=== PATIENT | female | born 1975 | race Two or more races ===

== ENCOUNTER 2018-06-19 13:09 | Emergency (ER) | payer MEDICAID, OTHER ==
[~2018-06-19] VITALS: Ht 165.1 cm; Wt 91.6 kg
[2018-06-19 14:10] LABS: Urine Bacteria FEW /hpf (None Seen); Urine Blood 2+ /uL (Negative); Urine Specific Gravity 1.014 (1.001-1.035); Urine WBC 3 /hpf (0 - 5)
[2018-06-19 14:27] LABS: Eosinophils # (auto) 0.1 uL; Eosinophils % (auto) 1.2 % (0.0-7.0); Mean Corpuscular Volume 81.6 fL (80.0-100.0); Monocytes # (auto) 0.6 uL
[2018-06-19 14:29] LABS: Basophils # (auto) 0 uL; Basophils % (auto) 0.4 % (0.0-2.0); Hematocrit 22.2 % (36.0-46.0); Hemoglobin 7.2 g/dL (12.2-16.2); Lymphocytes # (auto) 2.2 uL; Lymphocytes % (auto) 18.1 % (10.0-50.0); Mean Corpuscular Hemoglobin 26.6 pg (28.0-32.0); Mean Corpuscular Hgb Conc. 32.5 g/dL (32.0-36.0); Neutrophils # (auto) 9.1 uL; Neutrophils % (auto) 75.3 % (37.0-80.0); Nucleated Red Blood Cells % 0.2 %; Platelet Count (auto) 401 10^3/uL (140-450); Red Blood Cells 2.71 10^6/uL (4.0-5.20); Red Cell Distribution Width 15.2 % (11.8-14.3)
[2018-06-19 15:12] LABS: Albumin 3.4 g/dL (3.4-5.0); BUN/Creatinine Ratio 11.6; Bilirubin, Total 0.3 mg/dL (0.2-1.0); Calcium 8.3 mg/dL (8.5-10.1); Potassium 3.6 mmol/L (3.5-5.1); Total Protein 7.4 g/dL (6.4-8.2)
[2018-06-19] MEDS ORDERED: ACETAMINOPHEN 500 MG TAB PO ONE (15:15)
[2018-06-19 15:53] VITALS: BP 118/57
[2018-06-19] MEDS ORDERED: FERROUS SULFATE 325 MG TAB PO ONE (16:00)
== END 2018-06-19 17:32 | disposition home or self-care (01) ==
LOC: ER 13:09
DX: N93.9 Abnormal uterine and vaginal bleeding, unspecified (principal); D64.9 Anemia, unspecified
CPT/HCPCS: 36415; 76856; 80053; 81001; 84702; 85025; 99285; J7030

== ENCOUNTER 2020-07-11 07:23 | Emergency (ER) | payer MEDICAID ==
[~2020-07-11] VITALS: Ht 167.6 cm; Wt 81.6 kg
[2020-07-11 08:01] LABS: Basophils # (auto) 0.1 10 ^3/uL (0-0.2); Basophils % (auto) 0.5 % (0.0-2.0); Eosinophils # (auto) 0.2 10 ^3/uL (0-0.8); Eosinophils % (auto) 1.6 % (0.0-7.0); Hematocrit 27.8 % (36.0-46.0); Hemoglobin 8.7 g/dL (12.2-16.2); Lymphocytes # (auto) 1.8 10 ^3/uL (0.4-5.4); Lymphocytes % (auto) 14.5 % (10.0-50.0); Mean Corpuscular Hemoglobin 26.6 pg (28.0-32.0); Mean Corpuscular Hgb Conc. 31.3 g/dL (32.0-36.0); Monocytes # (auto) 0.6 10 ^3/uL (0-1.3); Monocytes % (auto) 5.3 % (0.0-12.0); Neutrophils # (auto) 9.6 10 ^3/uL (1.6-8.6); Neutrophils % (auto) 78.1 % (37.0-80.0); Nucleated Red Blood Cells % 0.1 %; Platelet Count (auto) 379 10^3/uL (140-450); Red Blood Cells 3.27 10^6/uL (4.0-5.20); White Blood Cell 12.2 10^3/uL (4.4-10.8)
[2020-07-11 08:03] LABS: Red Cell Distribution Width 20.9 % (11.8-14.3)
[2020-07-11 08:28] LABS: Albumin 3.3 g/dL (3.4-5.0); Calcium 8.4 mg/dL (8.5-10.1); Potassium 3.7 mmol/L (3.5-5.1)
[2020-07-11 08:31] LABS: BUN/Creatinine Ratio 18.1; Bilirubin, Total 0.2 mg/dL (0.2-1.0)
[2020-07-11] MEDS ORDERED: ONDANSETRON HCL 4 MG/2 ML VIAL IV ONE (09:45)
[2020-07-11] MEDS ORDERED: FERROUS SULFATE 325 MG TAB PO ONE (09:45)
[2020-07-11] MEDS ORDERED: MORPHINE SULFATE 4 MG/ML SYR/VIAL IV ONE (09:45)
[2020-07-11 12:02] LABS: Urine WBC None Seen /hpf (0 - 5)
[2020-07-11 12:33] LABS: Urine Bacteria NONE SEEN /hpf (None Seen); Urine Blood 3+ /uL (Negative)
[2020-07-11] MEDS ORDERED: HYDROcodone-ACET 5/325MG TAB PO ONE (13:45)
[2020-07-11 14:00] VITALS: BP 107/59
== END 2020-07-11 16:12 | disposition home or self-care (01) ==
LOC: ER 07:23 → EDBD 07:23 → ER 16:12
DX: N93.9 Abnormal uterine and vaginal bleeding, unspecified (principal); E86.0 Dehydration; D64.9 Anemia, unspecified; N83.201 Unspecified ovarian cyst, right side; N39.0 Urinary tract infection, site not specified; N20.0 Calculus of kidney; N92.0 Excessive and frequent menstruation with regular cycle
CPT/HCPCS: 36415; 74176; 76830; 76856; 80053; 81001; 85025; 96374; 96375; 99285; J2270; J2405

== ENCOUNTER 2023-01-28 00:19 | Emergency (ER) | payer MEDICAID ==
[~2023-01-28] VITALS: Ht 165.1 cm; Wt 95.0 kg
[2023-01-28] MEDS ORDERED: diphenhdrAMINE HCL 50 MG/1 ML VL IM ONE (00:45)
[2023-01-28] MEDS ORDERED: methylPREDNISolone SOD SUCC 125 MG/2 ML VL IM ONE (00:45)
[2023-01-28 03:33] LABS: Urine Bacteria NONE SEEN /hpf (None Seen); Urine Blood TRACE /uL (Negative); Urine Mucus FEW (None Seen); Urine Specific Gravity 1.029 (1.001-1.035); Urine WBC 2 /hpf (0 - 5)
[2023-01-28] MEDS ORDERED: PRED20TA2 PO (05:06)
[2023-01-28] MEDS ORDERED: DIPH-491 PO (05:06)
[2023-01-28 05:29] VITALS: BP 108/63
== END 2023-01-28 07:33 | disposition home or self-care (01) ==
LOC: ER 00:19
DX: T78.40XA Allergy, unspecified, initial encounter (principal); X58.XXXA Exposure to other specified factors, initial encounter
CPT/HCPCS: 81001; 96372; 99284; J1200; J2930

== ENCOUNTER 2024-02-10 18:04 | Emergency (ER) | payer MEDICAID, OTHER ==
[~2024-02-10] VITALS: Ht 167.6 cm; Wt 95.5 kg
[~2024-02-10 18:04] MED LIST: DIPH-491 PO; PRED20TA2 PO
[2024-02-10] MEDS ORDERED: AMOX875T4 PO (22:21)
[2024-02-10] MEDS ORDERED: IBUP-1456 PO (22:21)
[2024-02-10 23:18] VITALS: BP 109/67; PULSE 75; RESP 18; TEMP 97.2; O2SAT 95
[2024-02-10] MEDS: cefTRIAXone SOD 1,000 MG VL IM ONE (23:30)
[2024-02-10] MEDS: ONDANSETRON ODT 4 MG TAB PO ONE (23:31)
[2024-02-10] MEDS: HYDROcodone-ACET 5/325MG TAB PO ONE (23:31)
[2024-02-10] MEDS: TETANUS-DIPTH-ACEL PERTUSSIS 0.5ML SYR Tdap IM ONE (23:42)
== END 2024-02-10 23:45 | disposition home or self-care (01) ==
LOC: ER 18:04 → EDUNIT# 18:04 → ER 23:45
DX: S81.832A Puncture wound without foreign body, left lower leg, initial encounter (principal); W54.0XXA Bitten by dog, initial encounter; Y93.02 Activity, running; Y92.89 Other specified places as the place of occurrence of the external cause; Y99.8 Other external cause status
CPT/HCPCS: 12001; 90471; 90715; 96372; 99284; J0696; Q0162